=== PATIENT | male | born 1945 | race Caucasian/White ===

== ENCOUNTER 2016-09-16 11:35 | Day surgery (SDC) | payer MEDICARE, BC ==
--- NOTE | ~2016-09-16 | EGD ---
EGD REPORT [facility] [address] [id number] NAME: NIKOS HICKS : [birth year] STATUS : REG [facility]#: [id number] AGE: 71 ADM/REG DATE : 09/16/16 MR#: [id number] REPORT SERV DATE: 09/16/16 DICTATED BY: ADAL BARNARD DATE: 09/16/16 REPORT STATUS : Draft TRANSCRIBED BY: [facility] DATE: 09/16/16 Endoscopy Center Patient Name: Nikos Hicks Date of : 1945 Attending MD: YOLIE BARNARD MD Procedure Date No Time: 09/16/2016 Procedure: Colonoscopy Indications: Iron deficiency anemia Referring MD: YOLIE HA MD Medicines: See the Anesthesia note for documentation of the administered medications Complications: No immediate complications. Estimated blood loss: None. Procedure: Pre-Anesthesia Assessment: - ASA Grade Assessment: III - A patient with severe systemic disease. - Prior to the procedure, a History and Physical was performed, and patient medications and allergies were reviewed. The patient's tolerance of previous anesthesia was also reviewed. The risks and benefits of the procedure and the sedation options and risks were discussed with the patient. All questions were answered, and informed consent was obtained. Prior Anticoagulants: The patient has taken aspirin, last dose was 1 day prior to procedure. After reviewing the risks and benefits, the patient was deemed in satisfactory condition to undergo the procedure. After I obtained informed consent, the scope was passed under direct vision. Throughout the procedure, the patient's blood pressure, pulse, and oxygen saturations were monitored continuously. The PCF [id number] was introduced through the anus and advanced to the terminal ileum. The ileocecal valve, appendiceal orifice, terminal ileum and rectum were photographed. The entire colon was examined. The colonoscopy was performed without difficulty. The patient tolerated the procedure well. The quality of the bowel preparation was adequate. Findings: The perianal and digital rectal examinations were normal. The terminal ileum appeared normal. A sessile polyp was found in the mid ascending colon. The polyp was 3 mm in size. The polyp was removed with a cold snare. Resection and retrieval were complete. A sessile polyp was found in the sigmoid colon. The polyp was 4 mm in size. The polyp was removed with a cold snare. Resection and retrieval EGD REPORT [address] [address] NAME: NIKOS HICKS : [birth year] STATUS : REG [facility]#: [id number] AGE: 71 ADM/REG DATE : 09/16/16 MR#: [id number] REPORT SERV DATE: 09/16/16 DICTATED BY: ADAL BARNARD DATE: 09/16/16 REPORT STATUS : Draft TRANSCRIBED BY: [employer] [facility] DATE: 09/16/16 were complete. A few small-mouthed diverticula were found in the sigmoid colon. Non-bleeding internal hemorrhoids were found during retroflexion and were Grade I (internal hemorrhoids that do not prolapse). No other significant abnormalities were identified in a careful examination of the remainder of the colon. Impression: - The examined portion of the ileum was normal. - One 3 mm polyp in the mid ascending colon. Resected and retrieved. - One 4 mm polyp in the sigmoid colon. Resected and retrieved. - Diverticulosis in the sigmoid colon. - Non-bleeding internal hemorrhoids. Recommendation: - Patient has a contact number available for emergencies. The signs and symptoms of potential delayed complications were discussed with the patient. Return to normal activities tomorrow. Written discharge instructions were provided to the patient. - High fiber diet indefinitely. - Discharge patient to home. - Continue present medications. - Await pathology results. - Repeat colonoscopy in 5-10 years for surveillance based on pathology results. Procedure Code(s): --- Professional --- 24015, Colonoscopy, flexible, proximal to splenic flexure; with removal of tumor(s), polyp(s), or other lesion(s) by snare technique Diagnosis Code(s): --- Professional --- K64.0, First degree hemorrhoids K57.30, Diverticulosis of large intestine without perforation or abscess without bleeding D12.5, Benign neoplasm of sigmoid colon D12.2, Benign neoplasm of ascending colon D50.9, Iron deficiency anemia, unspecified CPT copyright 2013 [employer]. All rights reserved. The codes documented in this report are preliminary and upon label coder review may be revised to meet current compliance requirements. EGD REPORT [address] [address] NAME: NIKOS HICKS : [birth year] STATUS : REG [facility]#: [id number] AGE: 71 ADM/REG DATE : 09/16/16 MR#: [id number] REPORT SERV DATE: 09/16/16 DICTATED BY: ADAL BARNARD DATE: 09/16/16 REPORT STATUS : Draft TRANSCRIBED BY: [employer] DATE: 09/16/16 YOLIE BARNARD MD 09/16/2016 1:38 PM This report has been signed electronically. Number of Addenda: 0 Note Initiated On: 09/16/2016 12:59 PM Scope Withdrawal Time 0 hours 12 minutes 0 seconds
--- NOTE | ~2016-09-16 | EGD ---
EGD REPORT [facility] [address] [address] NAME: NIKOS HICKS : 45 STATUS : REG [facility]#: [id number] AGE: 71 ADM/REG DATE : 09/16/16 MR#: [id number] REPORT SERV DATE: 09/16/16 DICTATED BY: ADAL BARNARD DATE: 09/16/16 REPORT STATUS : Draft [facility]ANS[facility]IBED [facility]: [facility] DATE: 09/16/16 Endoscopy Center Patient Name: Nikos Hicks Date of : 1945 Attending MD: YOLIE BARNARD MD Procedure Date No Time: 09/16/2016 Procedure: Upper GI endoscopy Indications: Iron deficiency anemia Referring MD: YOLIE HA MD Medicines: See the Anesthesia note for documentation of the administered medications Complications: No immediate complications. Estimated blood loss: Minimal. Procedure: Pre-Anesthesia Assessment: - ASA Grade Assessment: III - A patient with severe systemic disease. - Prior to the procedure, a History and Physical was performed, and patient medications and allergies were reviewed. The patient's tolerance of previous anesthesia was also reviewed. The risks and benefits of the procedure and the sedation options and risks were discussed with the patient. All questions were answered, and informed consent was obtained. Prior Anticoagulants: The patient has taken aspirin, last dose was 1 day prior to procedure. After reviewing the risks and benefits, the patient was deemed in satisfactory condition to undergo the procedure. After obtaining informed consent, the endoscope was passed under direct vision. Throughout the procedure, the patient's blood pressure, pulse, and oxygen saturations were monitored continuously. The GIF H190 [id number] was introduced through the mouth, and advanced to the third part of duodenum. The upper GI endoscopy was accomplished without difficulty. The patient tolerated the procedure well. Findings: The examined duodenum was normal. Biopsies were taken with a cold forceps for histology. Diffuse mild inflammation characterized by erythema was found in the gastric antrum. Biopsies were taken with a cold forceps for histology. No other significant abnormalities were identified in a careful examination of the stomach. The cardia and gastric fundus were normal on retroflexion. The examined esophagus was normal. EGD REPORT [address] [address] NAME: NIKOS HICKS : [birth year] STATUS : REG [facility]#: [id number] AGE: 71 ADM/REG DATE : 09/16/16 MR#: [id number] REPORT SERV DATE: 09/16/16 DICTATED BY: ADAL BARNARD DATE: 09/16/16 REPORT STATUS : Draft [facility]ANSCRIBED BY: [facility] DATE: 09/16/16 Impression: - Normal examined duodenum. Biopsied. - Gastritis. Biopsied. - Normal esophagus. Recommendation: - Patient has a contact number available for emergencies. The signs and symptoms of potential delayed complications were discussed with the patient. Return to normal activities tomorrow. Written discharge instructions were provided to the patient. - Regular diet. - Discharge patient to home. - Continue present medications. - Await pathology results. Procedure Code(s): --- Professional --- 01163, Esophagogastroduodenoscopy, flexible, transoral; with biopsy, single or multiple Diagnosis Code(s): --- Professional --- K29.70, Gastritis, unspecified, without bleeding D50.9, Iron deficiency anemia, unspecified CPT copyright 2013 [employer]. All rights reserved. The codes documented in this report are preliminary and upon drop hammer operator helper review may be revised to meet current compliance requirements. YOLIE BARNARD MD 09/16/2016 1:17 PM This report has been signed electronically. Number of Addenda: 0 Note Initiated On: 09/16/2016 1:03 PM Scope Withdrawal Time 0 hours 0 minutes 0 seconds [address] [id number]
[~2016-09-16 11:35] MED LIST: ASAB PO; BRIMONIDINE0.2 % OPH; COZ50 PO; LUMIGAN2.5 ML OPH; MAGOX4 PO; PRAV10 PO; STRESS600T PO
== END 2016-09-16 23:59 | disposition home or self-care (01) ==
LOC: DMU 11:35
PROVIDERS: Internal Medicine Gastroenterology
PROC: 0DBK8ZZ Excision of Ascending Colon, Via Natural or Artificial Opening Endoscopic (ICD-10-PCS; 2016-09-16)
PROC: 0DBN8ZZ Excision of Sigmoid Colon, Via Natural or Artificial Opening Endoscopic (ICD-10-PCS; 2016-09-16)
PROC: 0DB98ZX Excision of Duodenum, Via Natural or Artificial Opening Endoscopic, Diagnostic (ICD-10-PCS; principal; 2016-09-16 12:30)
PROC: 0DB68ZX Excision of Stomach, Via Natural or Artificial Opening Endoscopic, Diagnostic (ICD-10-PCS; 2016-09-16 12:30)
DX: D12.2 Benign neoplasm of ascending colon (principal); K63.5 Polyp of colon; K64.0 First degree hemorrhoids; K29.70 Gastritis, unspecified, without bleeding; I10 Essential (primary) hypertension; R42 Dizziness and giddiness
CPT/HCPCS: 88305; 88342